=== PATIENT | male | born 2000 | race Caucasian/White ===

== ENCOUNTER 2022-10-17 09:19 | Emergency (ER) | payer OTHER ==
[~2022-10-17] VITALS: Ht 190.5 cm; Wt 77.3 kg
[2022-10-17 10:36] LABS: BASOPHILS % (AUTO) 0.4 % (0.0-2.0); EOSINOPHILS % (AUTO) 2.7 % (1.0-6.0); HEMOGLOBIN 14.9 g/dL (13.5-17.5); LYMPHOCYTES # (AUTO) 1.5 K/uL (1.0-4.8); LYMPHOCYTES % (AUTO) 22.4 % (22.0-44.0); MEAN CORPUSCULAR HEMOGLOBIN 29.8 pg (26.0-34.0); MEAN CORPUSCULAR HGB CONC 33.1 G/dL (31.0-37.0); MEAN CORPUSCULAR VOLUME 90 fL (80-100); MONOCYTES # (AUTO) 0.5 K/uL (0.1-1.0); MONOCYTES % (AUTO) 7.8 % (2.0-9.0); NEUTROPHILS # (AUTO) 4.4 K/uL (1.8-7.7); NEUTROPHILS % (AUTO) 66.7 % (40.0-70.0); PLATELET COUNT (AUTO) 251 K/uL (150-450); RED BLOOD CELL COUNT(AUTO) 4.99 MIL/uL (4.50-5.90); RED CELL DISTRIBUTION WIDTH 13.3 % (11.5-14.5)
[2022-10-17 10:45] LABS: ANION GAP 7 mmol/L (8-16); CALCIUM, TOTAL 9.4 mg/dL (8.8-10.5); CARBON DIOXIDE 30 mmol/L (22-29); CHLORIDE 104 mmol/L (98-107); CREATININE 1.07 mg/dL (0.60-1.30); GLOMERULAR FILTR. RATE CALC > 60 mL/min (>60); GLUCOSE,RANDOM 97 mg/dL (70-110); POTASSIUM 4.3 mmol/L (3.5-5.1); SODIUM SERUM 141 mmol/L (136-145)
[2022-10-17 10:53] LABS: ALANINE AMINOTRANSFERASE 21 U/L (12-78); ALBUMIN 4.6 g/dL (3.4-5.0); ALKALINE PHOSPHATASE 60 U/L (46-116); ASPARTATE AMINOTRANSFERASE 24 U/L (15-37); BILIRUBIN,TOTAL 0.6 mg/dL (0.1-1.0)
[2022-10-17] MEDS ORDERED: LIDOCAINE 5% TRANSDERMAL PATCH TD ONE (11:45)
[2022-10-17] MEDS ORDERED: KETOROLAC TROMETHAMINE 30 MG/ML VIAL IM ONE (11:45)
[2022-10-17 12:09] LABS: CREATINE KINASE, TOTAL ONLY 279 U/L (39-308)
[2022-10-17 13:05] VITALS: BP 123/71
[2022-10-17] MEDS ORDERED: BACL10TA PO (13:10)
[2022-10-17] MEDS ORDERED: IBUP-1492 PO (13:11)
== END 2022-10-17 13:25 | disposition home or self-care (01) ==
LOC: EDSEX 09:23 → EMS 09:23
DX: R07.89 Other chest pain (principal)
CPT/HCPCS: 99285; 71045; 80053; 82550; 84484; 85025; 36415; 93005; 96372; J1885